=== PATIENT | female | born 1990 | race Caucasian/White ===

== ENCOUNTER 2018-01-12 00:45 | Inpatient (IN) | payer OTHER ==
[2018-01-12] MEDS ORDERED: AMPICILLIN - 2 GM in SODIUM CHLORIDE 100 ML IVPB ONE (01:15)
[2018-01-12] MEDS ORDERED: DEXTROSE 5%-LACTATED RINGERS 1,000 ML IV ONE (01:15)
[2018-01-12] MEDS ORDERED: AMPICILLIN SODIUM 2 GM VIAL ONE (01:30)
[2018-01-12] MEDS ORDERED: DEXTROSE 5%-LACTATED RINGERS 500 ML IV ONE (02:15)
[2018-01-12 02:23] VITALS: BMI 31.0
[2018-01-12 02:26] LABS: EOS % 1.1 % (0-4.5); HEMATOCRIT 37.9 % (32.4-45.2); HEMOGLOBIN 13.2 GM/dL (10.7-15.3); MCH 30.4 pg (25.7-33.7); MCHC 34.9 g/dl (32.0-36.0); MEAN CELL VOLUME 87.2 fl (80-96); MEAN PLT VOLUME 8.3 fl (7.5-11.1); MONO % 6.8 % (3.8-10.2); NEUT % 70.1 % (42.8-82.8); PLATELET COUNT 294 K/MM3 (134-434); RBC 4.34 M/mm3 (3.60-5.2); RDW 13.9 % (11.6-15.6); WHITE BLOOD COUNT 9.9 K/mm3 (4.0-10.0)
[2018-01-12 02:35] LABS: ACTIVATED PTT 31.5 SECONDS (25.2-36.5)
[2018-01-12 02:59] LABS: ANION GAP 8 MMOL/L (8-16); BLOOD UREA NITROGEN 7 mg/dL (7-18); CALCIUM 8.4 mg/dL (8.5-10.1); CHLORIDE 106 mmol/L (98-107); CO2 24 mmol/L (21-32); CREATININE 0.7 mg/dL (0.55-1.3); GLUCOSE,RANDOM 100 mg/dL (74-106); SODIUM 138 mmol/L (136-145)
--- NOTE | 2018-01-12 03:25 | PN ---
Progress Note (short form) - Note Progress Note: cx 6 cm , 100 vx -2 mi, fhr cat 1, contraction q 3 min
--- NOTE | 2018-01-12 03:32 | HP ---
Past Medical History - Primary Care Physician PCP:: Nash Mayer - Admission Chief Complaint: 36 ,5 weeks, labor History of Present Illness: 27 yo f 002 , 36.5 weeks, labor, cx 6 cm , 80 vx -2, mi , fhr cat 1 History Source: Patient Limitations to Obtaining History: No Limitations - Past Medical History ...: 3 ...Para: 2 ...Term: 2 ...: 0 ...Spon : 0 ...Induced : 0 ...Multiple Gestation: 0 ...LMP: 04/30/18 ... Weeks Gestation by Dates: 36.5 ...EDC by Dates: 02/04/18 ...EDC by Sono: 02/04/18 - Past Surgical History Hx Myomectomy: No Hx Transabdominal Cerclage: No - Smoking History Smoking history: Never smoked Have you smoked in the past 12 months: No - Alcohol/Substance Use Hx Alcohol Use: No History of Substance Use: reports: None - Social History Usual Living Arrangement: Yes: With Spouse Home Medications - Allergies Allergies/Adverse Reactions: Allergies Allergy/AdvReac Type Severity Reaction Status Date / Time No Known Allergies Allergy Verified 01/09/18 15:13 - Home Medications Home Medications: Ambulatory Orders Vitamins ([facility]) - 1 tab PO DAILY 12/29/17 Review of Systems - Review of Systems Constitutional: reports: No Symptoms Eyes: reports: No Symptoms HENT: reports: No Symptoms Neck: reports: No Symptoms Cardiovascular: reports: No Symptoms Respiratory: reports: No Symptoms Gastrointestinal: reports: No Symptoms Genitourinary: reports: No Symptoms Breasts: reports: No Symptoms Reported Integumentary: reports: No Symptoms Neurological: reports: No Symptoms Endocrine: reports: No Symptoms Hematology/Lymphatic: reports: No Symptoms Psychiatric: reports: No Symptoms Physical Exam - Maternity Vital Signs: Vital Signs Temperature 98.3 F 01/12/18 02:00 Pulse Rate 105 H 01/12/18 02:00 Respiratory Rate 20 01/12/18 02:00 Blood Pressure 122/74 01/12/18 02:00 O2 Sat by Pulse Oximetry (%) Constitutional: Yes: Well Nourished, No Distress, Calm Eyes: Yes: WNL, Conjunctiva Clear, EOM Intact HENT: Yes: WNL, Atraumatic, Normocephalic Neck: Yes: WNL, Supple, Trachea Midline Cardiovascular: Yes: WNL, Regular Rate and Rhythm Breast(s): Yes: WNL - Abdominal Exam/OB Fundal Height: 36 Number of Fetuses: Single Presentation: Vertex Contractions: Yes Regularity: Regular Intensity: Mod/Strong Monitor Mode: External Heart Rate Location: [facility] Category: I Accelerations: Uniform Decelerations: None - Vaginal Exam/OB Vaginal Bleediing: No Speculum Exam: No Dilatation (cm): 6 cm Effacement (%): 80 Amniotic Membrane Status: Bulging Presentation: Vertex/Position Station: -2 - Physical Exam Musculoskeletal: Yes: WNL Extremities: Yes: WNL Edema: LLE: Trace, RLE: Trace Deep Tendon Reflex Grade: Normal +2 Psychiatric: Yes: WNL - Labs Lab Results: CBC, BMP 01/12/18 01:50 01/12/18 01:50 Hemorrhage Risk Assessment - Risk Factors Medium Risk Factors: Yes: None High Risk Factors: Yes: None Risk Score: 1 Risk Level: Medium Risk Problem List - Problems (1) with 36 completed weeks gestation Code(s): Z3A.36 - 36 WEEKS GESTATION OF (2) Labor established Code(s): BPI7489 - Assessment/Plan plan admit, fhm,, pain management
[2018-01-12] MEDS ORDERED: LIDOCAINE HCL 1% PRESERVATIVE FREE - 30ML VIAL ONE (04:58)
[2018-01-12] MEDS ORDERED: OXYTOCIN 20 UNITS in 0.9% NS 20 UNIT/1,000 ML INFUS.BAG IV ONE (04:58)
[2018-01-12 05:24] LABS: INR 0.99 (0.83-1.09); PROTHROMBIN TIME (PATIENT) 11.7 SEC (9.7-13.0)
[2018-01-12] MEDS ORDERED: AMPICILLIN SODIUM 1 GM VIAL ONE (05:26)
[2018-01-12] MEDS ORDERED: AMPICILLIN - 1 GM in SODIUM CHLORIDE 100 ML IVPB SCH (05:30)
[2018-01-12] MEDS ORDERED: OXYTOCIN 30 UNITS in 0.9% NS 30 UNIT/500 ML INFUS.BAG IVPB ONE (07:17)
--- NOTE | 2018-01-12 07:38 | PN ---
Progress Note (short form) - Note Progress Note: cx 8 cm, 100 vx -1 arom, clear , irregular contraction, advised pitocin, Problem List - Problems (1) with 36 completed weeks gestation Code(s): Z3A.36 - 36 WEEKS GESTATION OF (2) Labor established Code(s): [id number] -
[2018-01-12] MEDS ORDERED: OXYTOCIN 30 UNITS in 0.9% NS 30 UNIT/500 ML INFUS.BAG IVPB SCH (07:45)
[2018-01-12] MEDS ORDERED: WITCH HAZEL 50% (TUCKS) 40 PAD/JAR PAD TP PRN (08:07)
[2018-01-12] MEDS ORDERED: METHYLERGONOVINE MALEATE 0.2 MG/1 ML AMP IM PRN (08:07)
[2018-01-12] MEDS ORDERED: BENZOCAINE 20% 57 GM BOTTLE TP PRN (08:07)
[2018-01-12] MEDS ORDERED: BENZOCAINE 28 GM HEMORRHOIDAL OINTMENT TP PRN (08:07)
[2018-01-12] MEDS ORDERED: BISACODYL 10 MG SUPP.RECT RC PRN (08:07)
[2018-01-12] MEDS ORDERED: OXYTOCIN 20 UNITS in 0.9% NS 20 UNIT/1,000 ML INFUS.BAG IV SCH (08:15)
[2018-01-12] MEDS ORDERED: D5W-LR W/ 20 UNITS OXYTOCIN 20 UNIT/1,000 ML INFUS.BAG IV SCH (08:15)
[2018-01-12] MEDS ORDERED: IBUPROFEN 600 MG TABLET (FP) PO ONE (09:03)
[2018-01-12] MEDS ORDERED: ACETAMINOPHEN 325 MG TABLET (FP) ONE (09:04)
[2018-01-12] MEDS: FERROUS SO4 325 MG TABLET (FP) PO SCH ×2 (09:05→17:22)
[2018-01-12] MEDS: PRENATAL VITAMINS W/ FOLIC ACID TABLET (FP) PO SCH (09:05)
[2018-01-12] MEDS: ACETAMINOPHEN 325 MG TABLET (FP) PO PRN (09:10)
[2018-01-12] MEDS: IBUPROFEN 600 MG TABLET (FP) PO PRN (09:10)
[2018-01-13 07:52] LABS: BASO % 0.7 % (0-2.0); EOS % 1.4 % (0-4.5); HEMATOCRIT 34.3 % (32.4-45.2); HEMOGLOBIN 11.3 GM/dL (10.7-15.3); LYMPH % 24.5 % (8-40); MCH 29.2 pg (25.7-33.7); MEAN CELL VOLUME 88.3 fl (80-96); MEAN PLT VOLUME 7.9 fl (7.5-11.1); MONO % 5.4 % (3.8-10.2); PLATELET COUNT 243 K/MM3 (134-434); RBC 3.88 M/mm3 (3.60-5.2); RDW 13.9 % (11.6-15.6); WHITE BLOOD COUNT 12.2 K/mm3 (4.0-10.0)
--- NOTE | 2018-01-13 08:43 | PN ---
Post Progress Note - Subjective Subjective: 27 yo Para 3 status post , seen and evaluated. Doing well. Post Day: 1 Type of Delivery: Vital Signs: Vital Signs Temperature 98.3 F 01/12/18 20:31 Pulse Rate 84 01/12/18 20:31 Respiratory Rate 20 01/12/18 20:31 Blood Pressure 93/53 L 01/12/18 20:31 O2 Sat by Pulse Oximetry (%) 100 01/12/18 08:45 Breast Exam: Yes: Soft Uterus: Yes: Fundus Firm Abdomen/GI: Yes: Abdomen soft, Tolerating PO Lochia: Yes: Rubra Lochia, amount: Moderate Extremities: Yes: Calves non-tender Activity: Ambulating - Labs Labs: CBC WBC 9.9 K/mm3 (4.0-10.0) 01/12/18 01:50 RBC 4.34 M/mm3 (3.60-5.2) 01/12/18 01:50 Hgb 13.2 GM/dL (10.7-15.3) 01/12/18 01:50 Hct 37.9 % (32.4-45.2) 01/12/18 01:50 MCV 87.2 fl (80-96) 01/12/18 01:50 MCH 30.4 pg (25.7-33.7) 01/12/18 01:50 MCHC 34.9 g/dl (32.0-36.0) 01/12/18 01:50 RDW 13.9 % (11.6-15.6) 01/12/18 01:50 Plt Count 294 K/MM3 (134-434) D 01/12/18 01:50 MPV 8.3 fl (7.5-11.1) 01/12/18 01:50 Absolute Neuts (auto) 6.9 K/mm3 (1.5-8.0) 01/12/18 01:50 Neutrophils % 70.1 % (42.8-82.8) D 01/12/18 01:50 Lymphocytes % 21.0 % (8-40) 01/12/18 01:50 Monocytes % 6.8 % (3.8-10.2) 01/12/18 01:50 Eosinophils % 1.1 % (0-4.5) 01/12/18 01:50 Basophils % 1.0 % (0-2.0) 01/12/18 01:50 Nucleated RBC % 0 % (0-0) 01/12/18 01:50 Assessment/Plan Status post Stable Continue routine care
[2018-01-13] MEDS: FERROUS SO4 325 MG TABLET (FP) PO SCH ×2 (08:51→19:10)
[2018-01-13] MEDS: ACETAMINOPHEN 325 MG TABLET (FP) PO PRN (08:56)
[2018-01-13] MEDS: PRENATAL VITAMINS W/ FOLIC ACID TABLET (FP) PO SCH (10:49)
[2018-01-13] MEDS ORDERED: SENNOSIDES/DOCUSATE COMBO (SENNA PLUS) TABLET (UD) PO PRN (22:00)
[2018-01-13 23:31] VITALS: TEMP 98.5
[2018-01-14] MEDS: IBUPROFEN 600 MG TABLET (FP) PO PRN (03:22)
[2018-01-14] MEDS: ACETAMINOPHEN 325 MG TABLET (FP) PO PRN (03:22)
--- NOTE | 2018-01-14 08:27 | PN ---
Post Progress Note - Subjective Subjective: no complains Post Day: 2 Type of Delivery: Vital Signs: Vital Signs Temperature 98.5 F 01/13/18 21:00 Pulse Rate 85 01/13/18 21:00 Respiratory Rate 20 01/13/18 21:00 Blood Pressure 108/61 01/13/18 21:00 O2 Sat by Pulse Oximetry (%) 100 01/12/18 08:45 Breast Exam: Yes: Soft, Other (BF ). No: Engorged Uterus: Yes: Fundus Firm, Fundus below umbilicus, Non-tender Lochia: Yes: Rubra Lochia, amount: Moderate Extremities: Yes: Calves non-tender Perineum: Yes: Intact Activity: Ambulating - Labs Labs: CBC WBC 12.2 K/mm3 (4.0-10.0) H 01/13/18 06:30 RBC 3.88 M/mm3 (3.60-5.2) 01/13/18 06:30 Hgb 11.3 GM/dL (10.7-15.3) 01/13/18 06:30 Hct 34.3 % (32.4-45.2) 01/13/18 06:30 MCV 88.3 fl (80-96) 01/13/18 06:30 MCH 29.2 pg (25.7-33.7) 01/13/18 06:30 MCHC 33.0 g/dl (32.0-36.0) 01/13/18 06:30 RDW 13.9 % (11.6-15.6) 01/13/18 06:30 Plt Count 243 K/MM3 (134-434) 01/13/18 06:30 MPV 7.9 fl (7.5-11.1) 01/13/18 06:30 Absolute Neuts (auto) 8.3 K/mm3 (1.5-8.0) H 01/13/18 06:30 Neutrophils % 68.0 % (42.8-82.8) 01/13/18 06:30 Lymphocytes % 24.5 % (8-40) 01/13/18 06:30 Monocytes % 5.4 % (3.8-10.2) 01/13/18 06:30 Eosinophils % 1.4 % (0-4.5) 01/13/18 06:30 Basophils % 0.7 % (0-2.0) 01/13/18 06:30 Nucleated RBC % 0 % (0-0) 01/13/18 06:30 Problem List - Problems (2) Encounter for visit Code(s): Z39.2 - ENCOUNTER FOR ROUTINE FOLLOW-UP Assessment/Plan stable plan discharge today
[2018-01-14 08:55] VITALS: BP 112/74; PULSE 68
[2018-01-14] MEDS: FERROUS SO4 325 MG TABLET (FP) PO SCH (09:00)
[2018-01-14] MEDS: PRENATAL VITAMINS W/ FOLIC ACID TABLET (FP) PO SCH (09:00)
== END 2018-01-14 12:00 | disposition home or self-care (01) | DRG 560 ==
LOC: JDEL 00:45 → JLDR 01:15 → J3W 09:23
PROVIDERS: ADMIT Obstetrics & Gynecology; ATTEND Obstetrics & Gynecology
PROC: 10E0XZZ Delivery of Products of Conception, External Approach (ICD-10-PCS; principal; 2018-01-12)
DX: O80 Encounter for full-term uncomplicated delivery (principal); Z3A.36 36 weeks gestation of pregnancy; Z37.0 Single live birth
CPT/HCPCS: 36415; 59409; 80048; 85025; 85610; 85730; 86593; 86850; 86900; 86901